=== PATIENT | female | born 1950 | race Caucasian/White ===

== ENCOUNTER 2018-04-15 05:03 | Outpatient (CLI) | payer MEDICARE | END 2018-04-15 23:59 | disposition home or self-care (01) | LOC: DIABETIC 05:03 | PROVIDERS: ATTEND Physician Assistant | DX: E11.9 Type 2 diabetes mellitus without complications (principal) | CPT/HCPCS: G0108 ==

== ENCOUNTER 2019-02-23 08:35 | Inpatient (IN) | payer MEDICARE | END 2019-02-26 17:15 | disposition home health service (06) | LOC: PAS IN 08:35 → ORTHO 4S 14:45 | PROC: 0SRC0JZ Replacement of Right Knee Joint with Synthetic Substitute, Open Approach (ICD-10-PCS; principal; 2019-02-23 10:24) | PROC: 0MNN0ZZ Release Right Knee Bursa and Ligament, Open Approach (ICD-10-PCS; 2019-02-23 10:24) | DX: M17.11 Unilateral primary osteoarthritis, right knee (principal) ==